=== PATIENT | female | born 1990 | race Caucasian/White ===

== ENCOUNTER 2021-07-03 14:01 | Inpatient (IN) | payer OTHER ==
[~2021-07-03 14:01] MED LIST: Bupivacaine 0.25% HCL 30 ML VIAL ONE; ePHEDrine Sulfate 50 MG/10 ML VIAL ONE
[2021-07-03 15:02] VITALS: BMI 33.4
[2021-07-03] MEDS ORDERED: Promethazine HCl 25 MG/ML VIAL IM PRN ×2 (15:08→20:31)
[2021-07-03] MEDS ORDERED: Lidocaine 1% (PF) 30 ML VIAL SC PRN (15:08)
[2021-07-03] MEDS ORDERED: Ondansetron PF 4 MG/2 ML Vial IVP PRN ×2 (15:08→20:31)
[2021-07-03] MEDS ORDERED: hydrALAZINE 20 MG/ML VIAL SLOW IVP PRN (15:08)
[2021-07-03] MEDS ORDERED: NS w/ Oxytocin 30 units 500 ML IV SCH ×2 (15:15)
[2021-07-03 15:34] LABS: Hemoglobin 12.2 g/dL (12.0-15.5); Mean Corpuscular HGB CONC 33.3 g/dL (32.0-36.0); Mean Corpuscular Hemoglobin 29.1 pg (27.0-33.0); Mean Corpuscular Volume 87.4 fl (81.6-98.3); Mean Platelet Volume 11.6 fl (7.4-10.4); Platelet Count 210 10x3/uL (150-450); RBC Distribution Width 15.6 % (11.5-14.5); Red Blood Cell (RBC) Count 4.19 10x6/uL (3.90-5.03); White Blood Cell (WBC) Count 11.7 10x3/uL (3.5-10.5)
[2021-07-03 16:02] LABS: Syphilis Antibody Nonreactive (Nonreactive); Syphilis Antibody Index 0.18 S/CO (<1.00 Non-Reactive)
[2021-07-03 17:11] LABS: HIV (1/2) Antibody/Antigen Non-Reactive (NonReactive); HIV 1/2 INDEX 0.06 S/CO (<1.00); Hep B Surf Ag Non-Reactive S/CO (NonReactive)
[2021-07-03 17:19] LABS: SARS-CoV-2 NAA Rapid Test Not Detected (NotDetected)
[2021-07-03 17:27] LABS: HBSAg Index 0.17 S/CO (0-0.99)
[2021-07-03] MEDS ORDERED: Fentanyl 2 mcg/Bup 0.1% Cadd 100 ML ONE (18:59)
[2021-07-03] MEDS: Lactated Ringer's 1,000 ML IV SCH (19:47)
[2021-07-03] MEDS ORDERED: Hydrocerin (Eucerin) Cream 120 gm Jar TOP PRN (20:31)
[2021-07-03] MEDS ORDERED: Acetaminophen 325 MG TAB PO PRN (20:31)
[2021-07-03] MEDS ORDERED: Naloxone HCl 0.4 mg/ml Vial IVP PRN ×2 (20:31)
[2021-07-03] MEDS ORDERED: ePHEDrine Sulfate 50 MG/10 ML VIAL SLOW IVP PRN (20:31)
[2021-07-03] MEDS ORDERED: diphenhydrAMINE 50 MG/ML VIAL IVP PRN (20:31)
[2021-07-03] MEDS ORDERED: Lactated Ringer's 500 ML IV PRN (20:31)
[2021-07-03] MEDS ORDERED: Fentanyl 2 mcg/Bupivacaine 0.1% Cassette 100 ML EPIDURAL SCH (20:45)
[2021-07-03] MEDS ORDERED: Communication Order-Pharmacy FS SCH (20:45)
[2021-07-04] MEDS ORDERED: Bisacodyl 10 MG SUPP PR PRN (03:15)
[2021-07-04] MEDS ORDERED: diphenhydrAMINE 25 MG CAP PO PRN (03:15)
[2021-07-04] MEDS ORDERED: Lanolin Ointment 7 GM TUBE TOP PRN (03:15)
[2021-07-04] MEDS ORDERED: hydrALAZINE 20 MG/ML VIAL SLOW IVP PRN (03:15)
[2021-07-04] MEDS ORDERED: Boostrix 0.5 ML (Tdap) VIAL IM ONE (03:15)
[2021-07-04] MEDS ORDERED: HYDROcodone/Acetaminophen 5/325 mg Tablet PO PRN (03:15)
[2021-07-04] MEDS ORDERED: Promethazine HCl 25 MG/ML VIAL IM PRN (03:15)
[2021-07-04] MEDS ORDERED: Benzocaine-Menthol 82.5 ML CAN TOP PRN (03:15)
[2021-07-04] MEDS ORDERED: Preparation H Ointment 28 GM TUBE PR PRN (03:15)
[2021-07-04] MEDS ORDERED: Ondansetron PF 4 MG/2 ML Vial IVP PRN (03:15)
[2021-07-04] MEDS ORDERED: Milk Of Magnesia 30 ML UDCUP PO PRN (03:15)
[2021-07-04] MEDS: HYDROcodone/Acetaminophen 5/325 mg Tablet PO PRN ×3 (03:51→19:00)
[2021-07-04] MEDS: Ibuprofen 800 MG TAB PO SCH ×3 (06:05→22:07)
[2021-07-04] MEDS: Ferrous Sulfate 325 MG TAB PO SCH ×2 (08:38→17:30)
[2021-07-04] MEDS: Docusate Calcium (SURFAK) 240 MG CAP PO SCH ×2 (08:40→22:07)
[2021-07-04] MEDS: Prenatal Vitamin 1 TAB PO SCH (08:40)
[2021-07-04] MEDS: Lactated Ringer's 1,000 ML IV SCH (23:39)
[2021-07-05] MEDS: Ibuprofen 800 MG TAB PO SCH ×3 (06:02→22:04)
[2021-07-05] MEDS: Prenatal Vitamin 1 TAB PO SCH (09:00)
[2021-07-05] MEDS: Docusate Calcium (SURFAK) 240 MG CAP PO SCH ×2 (09:00→22:04)
[2021-07-05] MEDS: Ferrous Sulfate 325 MG TAB PO SCH ×2 (09:01→16:47)
[2021-07-05] MEDS: HYDROcodone/Acetaminophen 5/325 mg Tablet PO PRN ×2 (15:35→20:31)
[2021-07-06] MEDS: Ibuprofen 800 MG TAB PO SCH (05:56)
[2021-07-06] MEDS: Ferrous Sulfate 325 MG TAB PO SCH (07:18)
[2021-07-06] MEDS: Docusate Calcium (SURFAK) 240 MG CAP PO SCH (07:44)
[2021-07-06] MEDS: Prenatal Vitamin 1 TAB PO SCH (07:44)
[2021-07-06] MEDS: HYDROcodone/Acetaminophen 5/325 mg Tablet PO PRN (07:44)
[2021-07-06 08:01] VITALS: BP 119/60; TEMP 97.6
== END 2021-07-06 12:00 | disposition home or self-care (01) | DRG 806 ==
LOC: CSHLD 14:01 → CSHPP 07-04 04:04
PROVIDERS: ADMIT Student in an Organized Health Care Education/Training Program; ATTEND Student in an Organized Health Care Education/Training Program
PROC: 10E0XZZ Delivery of Products of Conception, External Approach (ICD-10-PCS; principal; 2021-07-04)
PROC: 0KQM0ZZ Repair Perineum Muscle, Open Approach (ICD-10-PCS; 2021-07-04)
PROC: 10907ZC Drainage of Amniotic Fluid, Therapeutic from Products of Conception, Via Natural or Artificial Opening (ICD-10-PCS; 2021-07-04)
PROC: 3E033VJ Introduction of Other Hormone into Peripheral Vein, Percutaneous Approach (ICD-10-PCS; 2021-07-04)
DX: O99.344 Other mental disorders complicating childbirth (principal); O41.03X0 Oligohydramnios, third trimester, not applicable or unspecified; Z20.822 Contact with and (suspected) exposure to COVID-19; F41.9 Anxiety disorder, unspecified; O70.1 Second degree perineal laceration during delivery; Z37.0 Single live birth; Z3A.39 39 weeks gestation of pregnancy
CPT/HCPCS: 36415; 51702; 85027; 85461; 86762; 86780; 86850; 86870; 86900; 86901; 87340; 87389; 90384; 96372; J2405; J2590; J7120; S0020; U0002

== ENCOUNTER 2023-07-01 15:09 | Inpatient (IN) | payer BC ==
[2023-07-03 07:12] VITALS: BMI 33.3
[2023-07-03] MEDS ORDERED: Promethazine HCl 25 MG/ML VIAL IM PRN ×3 (08:04→19:32)
[2023-07-03] MEDS ORDERED: Misoprostol 200 MCG TAB PR PRN (08:04)
[2023-07-03] MEDS ORDERED: HYDROcodone/Acetaminophen 5/325 mg Tablet PO PRN ×2 (08:04→19:32)
[2023-07-03] MEDS ORDERED: hydrALAZINE 20 MG/ML VIAL SLOW IVP PRN ×2 (08:04→19:32)
[2023-07-03] MEDS ORDERED: Ondansetron PF 4 MG/2 ML Vial IVP PRN ×3 (08:04→19:32)
[2023-07-03] MEDS ORDERED: Oxytocin 30 units/NS 500 ML 500 ML IV SCH ×2 (08:04)
[2023-07-03] MEDS ORDERED: Diphenoxylate HCl/Atropine Tablet PO PRN (08:04)
[2023-07-03] MEDS ORDERED: Methylergonovine 0.2 MG/ML VIAL IM PRN (08:04)
[2023-07-03] MEDS ORDERED: Oxytocin 30 units/NS 500 ML 500 ML ONE (08:04)
[2023-07-03] MEDS ORDERED: Carboprost 250 MCG/ML AMP IM PRN (08:04)
[2023-07-03] MEDS ORDERED: Lactated Ringer's 1,000 ML IV SCH (08:04)
[2023-07-03] MEDS ORDERED: fentaNYL 50 mcg/mL 1 mL Vial SLOW IVP PRN (08:04)
[2023-07-03] MEDS ORDERED: Acetaminophen 500 MG TAB PO PRN (08:04)
[2023-07-03] MEDS ORDERED: Lidocaine 1% (PF) 30 ML VIAL SC PRN (08:04)
[2023-07-03] MEDS ORDERED: Ibuprofen 800 MG TAB PO PRN (08:04)
[2023-07-03 08:14] LABS: Hematocrit 34.6 % (34.9-44.5); Hemoglobin 11.3 g/dL (12.0-15.5); Mean Corpuscular HGB CONC 32.7 g/dL (32.0-36.0); Mean Corpuscular Hemoglobin 26.9 pg (27.0-33.0); Mean Corpuscular Volume 82.4 fl (81.6-98.3); Mean Platelet Volume 10.4 fl (7.4-10.4); Platelet Count 222 10x3/uL (150-450); RBC Distribution Width 15.7 % (11.5-14.5); White Blood Cell (WBC) Count 11.7 10x3/uL (3.5-10.5)
[2023-07-03 08:42] LABS: HBSAg Index 0.17 S/CO (0-0.99); Hep B Surf Ag - L&D Non-Reactive S/CO (NonReactive)
[2023-07-03 08:43] LABS: Syphilis Antibody Nonreactive (Nonreactive); Syphilis Antibody Index 0.14 S/CO (<1.00 Non-Reactive)
[2023-07-03] MEDS ORDERED: fentaNYL/Ropivacaine Epidural 100 ML ONE (11:08)
[2023-07-03] MEDS ORDERED: diphenhydrAMINE 50 MG/ML VIAL IVP PRN (11:16)
[2023-07-03] MEDS ORDERED: ePHEDrine Sulfate 50 MG/10 ML VIAL SLOW IVP PRN (11:16)
[2023-07-03] MEDS ORDERED: Lactated Ringer's 500 ML IV PRN (11:16)
[2023-07-03] MEDS ORDERED: Naloxone HCl 0.4 mg/ml Vial IVP PRN ×2 (11:16)
[2023-07-03] MEDS ORDERED: Acetaminophen 325 MG TAB PO PRN (11:16)
[2023-07-03] MEDS ORDERED: Moisturizing Cream (Eucerin) 113 GM JAR TOP PRN (11:16)
[2023-07-03] MEDS ORDERED: Communication Order-Pharmacy FS SCH (11:30)
[2023-07-03] MEDS ORDERED: fentaNYL 2 mcg/Ropivacaine 0.2% Epidural 100 ML CADD EPIDURAL SCH (11:30)
[2023-07-03] MEDS ORDERED: Hepatitis B Vaccine 10 MCG/0.5 ML SYR ONE (17:26)
[2023-07-03] MEDS ORDERED: Erythromycin Base 0.5% Oint 1 GM TUBE ONE (17:26)
[2023-07-03] MEDS ORDERED: Phytonadione Neonatal 1 MG/0.5 ML AMP ONE (17:26)
[2023-07-03] MEDS ORDERED: Bupivacaine 0.25% HCL 30 ML VIAL ONE (19:00)
[2023-07-03] MEDS ORDERED: Lanolin Ointment 7 GM TUBE TOP PRN (19:32)
[2023-07-03] MEDS ORDERED: Bisacodyl 10 MG SUPP PR PRN (19:32)
[2023-07-03] MEDS ORDERED: Benzocaine-Menthol 82.5 ML CAN TOP PRN (19:32)
[2023-07-03] MEDS ORDERED: diphenhydrAMINE 25 MG CAP PO PRN (19:32)
[2023-07-03] MEDS ORDERED: Boostrix 0.5 ML (Tdap) VIAL (>/=7 yrs of age) IM ONE (19:32)
[2023-07-03] MEDS ORDERED: Milk Of Magnesia 30 ML UDCUP PO PRN (19:32)
[2023-07-03] MEDS ORDERED: Preparation H Ointment 28 GM TUBE PR PRN (19:32)
[2023-07-03] MEDS ORDERED: Ferrous Sulfate 325 MG TAB PO SCH (21:00)
[2023-07-03] MEDS: Ibuprofen 800 MG TAB PO SCH (21:08)
[2023-07-03] MEDS: Docusate 100 MG CAP PO SCH (21:08)
[2023-07-03] MEDS: HYDROcodone/Acetaminophen 5/325 mg Tablet PO PRN (22:42)
[2023-07-04] MEDS: Ibuprofen 800 MG TAB PO SCH ×3 (05:17→21:09)
[2023-07-04] MEDS: Prenatal Vitamin 1 TAB PO SCH (08:45)
[2023-07-04] MEDS: Docusate 100 MG CAP PO SCH ×2 (08:45→19:41)
[2023-07-04] MEDS: Ferrous Sulfate 325 MG TAB PO SCH ×2 (08:47→18:14)
[2023-07-04] MEDS: HYDROcodone/Acetaminophen 5/325 mg Tablet PO PRN (19:42)
[2023-07-05] MEDS: Ibuprofen 800 MG TAB PO SCH (05:44)
[2023-07-05] MEDS: HYDROcodone/Acetaminophen 5/325 mg Tablet PO PRN ×2 (08:26→12:17)
[2023-07-05] MEDS: Prenatal Vitamin 1 TAB PO SCH (08:26)
[2023-07-05] MEDS: Docusate 100 MG CAP PO SCH (08:26)
[2023-07-05 08:40] VITALS: BP 117/60; TEMP 98.1
== END 2023-07-05 12:40 | disposition home or self-care (01) | DRG 807 ==
LOC: CSHLD 07-03 06:33 → CSHPP 07-03 18:45
PROVIDERS: ADMIT Student in an Organized Health Care Education/Training Program; ATTEND Student in an Organized Health Care Education/Training Program
PROC: 10E0XZZ Delivery of Products of Conception, External Approach (ICD-10-PCS; principal; 2023-07-03)
PROC: 0KQM0ZZ Repair Perineum Muscle, Open Approach (ICD-10-PCS; 2023-07-03)
PROC: 3E033XZ Introduction of Vasopressor into Peripheral Vein, Percutaneous Approach (ICD-10-PCS; 2023-07-03)
DX: O70.1 Second degree perineal laceration during delivery (principal); Z37.0 Single live birth; O48.0 Post-term pregnancy; Z3A.40 40 weeks gestation of pregnancy; O90.89 Other complications of the puerperium, not elsewhere classified; R33.9 Retention of urine, unspecified
CPT/HCPCS: 51702; 85027; 86780; 86850; 86900; 86901; 87340; J2590; S0020